=== PATIENT | male | born 1990 | race African-American/Black ===

== ENCOUNTER 2018-07-26 12:54 | Emergency (ER) | payer OTHER ==
[~2018-07-26] VITALS: Ht 185.4 cm; Wt 93.2 kg
[2018-07-26 12:55] VITALS: BP 140/81
[2018-07-26] MEDS ORDERED: NAPROXEN 250 MG TAB PO ONE (13:45)
[2018-07-26] MEDS ORDERED: PENICILLIN V POTASSIUM 500 MG TAB PO ONE (13:45)
[2018-07-26] MEDS ORDERED: PENI500T PO (14:01)
[2018-07-26] MEDS ORDERED: NAPR-837 PO (14:01)
== END 2018-07-26 14:07 | disposition home or self-care (01) ==
LOC: M ED 12:54
DX: K04.7 Periapical abscess without sinus (principal)

== ENCOUNTER 2020-03-15 13:39 | Emergency (ER) | payer BC, SELFPAY ==
[~2020-03-15] VITALS: Ht 185.4 cm; Wt 87.5 kg
[~2020-03-15 13:39] MED LIST: NAPR-837 PO; PENI500T PO
--- OUTSIDE RECORDS SUMMARY | 2020-03-15 13:54 | CCD ---
Author Author [facility] [employer] Organization [facility] [employer] Address Unknown Phone Unavailable Care Team Providers Care Failure Analysis Engineer Name Role Phone Shanique-Hakan Arin Unavailable PROBLEMS No Information ALLERGIES No Known Allergies ENCOUNTERS from 1990 to 2020-02-14 Encounter Location Date Provider Diagnosis [facility] [address] [place] [address] 13 Dec, Arin Brennategucci IMMUNIZATIONS No Information SOCIAL HISTORY Tobacco Use: Social History Observation Description Date Details (start date - stop date) Former Smoker Sex Assigned At : Social History Observation Description Sex Assigned At Unknown Alcohol Screening: Question Answer Notes Did you have a drink containing alcohol in the past year? Ye s Points 2 Interpretation Negative How often did you have six or more drinks on one occas ion in the past year? Never (0 points) How many drinks did you have on a typica l day when you were drinking in the past year? 1 or 2 (0 points) How often did you have a drink containing alcohol in t he past year? Two to four times a month (2 points) Tobacco Use: Question Answer Notes Are you a: former smoker How long has it been since you last smoked? 1-5 years REASON FOR REFERRAL No Information VITAL SIGNS No information MEDICATIONS No Information PROCEDURES No Information RESULTS No Results REASON FOR VISIT Ultrasound MEDICAL (GENERAL) HISTORY Type Description Date Surgical History No Surgical history information Goals Section No Information Health Concerns No Information MEDICAL EQUIPMENT No Information MENTAL STATUS No Information FUNCTIONAL STATUS No Information ASSESSMENTS No Information PLAN OF TREATMENT No Information Insurance Providers Payer Name Payer Address Payer Phone Insured Name Patient Relati onship to Insured Coverage Start Date Coverage End Date SELF PAY MAUREEN ONEILL self
--- OUTSIDE RECORDS SUMMARY | 2020-03-15 13:54 | CCD ---
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 Role Phone Dl Harper MD Unavailable Unavailable HeDl cortes MD Unavailable Unavailable HeDl cortes MD Unavailable Unavailable HeitDl almonte MD Unavailable Unavailable HeDl cortes MD Unavailable Unavailable HeitDl almonte MD Unavailable Unavailable HeDl cortes MD Unavailable Unavailable HeDl cortes MD Unavailable Unavailable Dl Harper MD Unavailable Unavailable HeDl cortes MD Unavailable Unavailable HeDl cortes MD Unavailable Unavailable HeDl cortes MD Unavailable Unavailable Dl Harper MD Unavailable Unavailable Dl Harper MD Unavailable Unavailable Dl Harper MD Unavailable Unavailable Dl Harper MD Unavailable Unavailable HeDl cortes MD Unavailable Unavailable Dl Harper MD Unavailable Unavailable Dl Harper MD Unavailable Unavailable Dl Harper MD Unavailable Unavailable Dl Harper MD Unavailable Unavailable Dl Harper MD Unavailable Unavailable Dl Harper MD Unavailable Unavailable Dl Harper MD Unavailable Unavailable Dl Harper MD Unavailable Unavailable Re-disclosure Warning The records that you are about to access may contain information from federally-assisted alcohol or drug abuse programs. If such information is present, then the following federally mandated warning applies: This information has been disclosed to you from records protected by federal confidentiality rules (42 CFR part 2). The federal rules prohibit you from making any further disclosure of this information unless further disclosure is expressly permitted by the written consent of the person to whom it pertains or as otherwise permitted by 42 CFR part 2. A general authorization for the release of medical or other information is NOT sufficient for this purpose. The Federal rules restrict any use of the information to criminally investigate or prosecute any alcohol or drug abuse patient.The records that you are about to access may contain highly sensitive health information, the redisclosure of which is protected by Article 27-F of the [facility] Public Health law. If you continue you may have access to information: Regarding HIV / AIDS; Provided by facilities licensed or operated by the [facility] Office of Mental Health; or Provided by the [facility] Office for People With Developmental Disabilities. If such information is present, then the following [facility] mandated warning applies: This information has been disclosed to you from confidential records which are protected by state law. State law prohibits you from making any further disclosure of this information without the specific written consent of the person to whom it pertains, or as otherwise permitted by law. Any unauthorized further disclosure in violation of state law may result in a fine or alf sentence or both. A general authorization for the release of medical or other information is NOT sufficient authorization for further disc losure. Encounters Encounter Providers Location Date Indications Data Source(s ) Unknown [address] [facility], [facility] [address] 01/12/2020 12:00:00 AM EST eCW1 ([facility]) OFFICE OUTPATIENT NEW 30 MINUTES Attender: Genaro Harper MD Phy sical Therapy 05/10/2019 10:00:00 AM EDT MEDENT ([facility]) Medications Medication Brand Name Start Date Product Form Dose Route Admi nistrative Instructions Pharmacy Instructions Status Indications Reaction Description Data Source(s) 20 mg 05/06/2019 12:00:00 AM EST tablet 10 TAKE TWO TABLETS BY MOUTH EVERY DAY FOR 5 DAYS TAKE TWO TABLETS BY MOUTH EVERY DAY FOR 5 DAYS SOLD: [facility] Insurance Providers Payer name Policy type / Coverage type Policy ID Covered libertarian ID Covered libertarian's relationship to [place] Policy [place] Plan Information SELF PAY ONLY [id number] [facility] [id number] [facility] [id number] Social History Code Duration Value Status Description Data Source(s ) Smoking 01/12/2020 12:00:00 AM EST Former Smoker completed Former Smoker eCW1 ([facility]) Vital Signs ID Date Data Source UNK Name Value Range Interpretation Code Description Data Source(s) Body mass index (BMI) [Ratio] 26.4 kg/m2 26.4 k g/m2 MEDENT ([facility] ) Body weight 200.00 [lb_av] 200.00 [lb_av] MEDEN T ([facility]) Body height 73 [in_i] 73 [in_i] MEDENT ([facility] ) 6'1" Body temperature 98.2 [degF] 98.2 [degF] MEDENT ([facility])
[2020-03-15 15:10] LABS: HEMATOCRIT 24.2 % (42.0-52.0); HEMOGLOBIN 8.8 g/dl (13.5-17.5); MEAN CORPUSCULAR HEMOGLOBIN 30.9 pg (27.0-33.0); MEAN CORPUSCULAR HGB CONC 36.4 g/dl (32.0-36.5); MEAN CORPUSCULAR VOLUME 84.9 fl (80.0-96.0); PLATELET COUNT, AUTOMATED 532 10^3/uL (150-450); RED BLOOD COUNT 2.85 10^6/uL (4.30-6.10)
--- OUTSIDE RECORDS SUMMARY | 2020-03-15 15:11 | CCD ---
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 If you continue you may have access to information: Regarding HIV / AIDS; Provided by facilities licensed or operated by the [facility] Office of Mental Health; or Provided by the [facility] Office for People With Developmental Disabilities. If such information is present, then the following [facility] mandated warning applies: This information has [...] law may result in a fine or chcf sentence or both. A general authorization for the release of medical or other information is NOT sufficient authorization for further disc losure. Encounters Encounter Providers Location Date Indications Data Source(s ) Unknown [address] [facility], [facility] [address] 01/12/2020 12:00:00 AM EST [facility] OFFICE OUTPATIENT NEW 30 MINUTES Attender: Genaro Harper MD Phy sical Therapy 05/10/2019 10:00:00 AM EDT MEDENT ([facility]) Medications Medication Brand [...] type / Coverage type Policy ID Covered democrat ID Covered democrat's relationship to [place] Policy [place] Plan Information [employer] [place] P[place] 302/307 [id number] SP [id number] [employer] [place] P[place] 302/307 [id number] SP [id number] SELF PAY ONLY [id number] SP [id number] [address] [facility] [id number] Social History Code Duration Value Status Description Data Source(s ) Smoking 01/12/2020 12:00:00 AM EST Former Smoker completed Former Smoker eCW1 ([facility]) Vital Signs ID Date Data Source UNK Name Value Range Interpretation Code Description Data Source(s) Body mass index (BMI) [Ratio] 26.4 kg/m2 26.4 k g/m2 [facility] ([facility] ) Body weight 200.00 [lb_av] 200.00 [lb_av] MEDEN T ([facility] ) Body height 73 [in_i] 73 [in_i] [facility] ([facility] ) 6'1" Body temperature 98.2 [degF] 98.2 [degF] [facility] ([facility] )
--- NOTE | 2020-03-15 15:24 | REP ---
INDICATION: night sweats, pain lateral knee, swollen lump COMPARISON: None TECHNIQUE: Five views FINDINGS: See impression IMPRESSION: The compartments are symmetric and relatively well maintained. There is no acute fracture or destructive osseous lesion. <Electronically signed by Luis Jeff > 03/15/20 1252
[2020-03-15 15:26] LABS: WHITE BLOOD COUNT 403.7 10^3/uL (4.0-10.0)
[2020-03-15 15:29] LABS: INR 1.4; PROTHROMBIN TIME 17.5 SECONDS (12.5-14.3)
--- NOTE | 2020-03-15 15:29 | REP ---
INDICATION: night sweats, left supraclavicular swelling. COMPARISON: None. FINDINGS: The superior mediastinal structures are midline. The cardiac silhouette is unremarkable in size, shape, and position. The diaphragmatic surfaces of the lungs are regular, and the costophrenic angles are clear. The pulmonary vizcarra are clear. The imaged osseous structures are intact. IMPRESSION: There is no acute cardiopulmonary disease. If lymphadenopathy is of clinical concern then contrast-enhanced CT examination is recommended. <Electronically signed by Luis Jeff > 03/15/20 3651
[2020-03-15 15:30] LABS: PARTIAL THROMBOPLASTIN TIME 42.5 SECONDS (24.2-38.5)
[2020-03-15 15:38] LABS: MONO REFLEX EBV COMP NEGATIVE (NEGATIVE)
[2020-03-15 15:40] LABS: ALBUMIN 3.5 GM/DL (3.2-5.2); ALT/SGPT 22 U/L (12-78); BILIRUBIN,DIRECT 0.2 MG/DL (0.0-0.2); BILIRUBIN,TOTAL 0.5 MG/DL (0.2-1.0); BLOOD UREA NITROGEN 12 MG/DL (7-18); C REACTIVE PROTEIN QUANTITATIV 1.63 MG/DL (0.00-0.30); CALCIUM LEVEL 8.3 MG/DL (8.5-10.1); CARBON DIOXIDE LEVEL 30 MEQ/L (21-32); CHLORIDE LEVEL 104 MEQ/L (98-107); CREATININE FOR GFR 1.32 MG/DL (0.70-1.30); FREE T4 1.01 NG/DL (0.76-1.46); GLOMERULAR FILTRATION RATE > 60.0 (>60); GLUCOSE, FASTING 86 MG/DL (70-100); LIPASE 83 U/L (73-393); POTASSIUM SERUM 3.5 MEQ/L (3.5-5.1); SODIUM LEVEL 137 MEQ/L (136-145); TOTAL PROTEIN 8.8 GM/DL (6.4-8.2)
[2020-03-15 15:42] LABS: BASOPHILS 2 % (0-1); BLAST CELLS 6 % (0-0); LYMPHOCYTES 1 % (16-44); METAMYELOCYTES 11 % (0-0); MONOCYTES 1 % (0-5); MYELOCYTES 17 % (0-0); NEUTROPHILS 42 % (28-66); PLATELET ESTIMATE INCREASED (NORMAL); PROMYELOCYTES 8 % (0-0)
[2020-03-15 15:44] LABS: ANISOCYTOSIS 1+; POLYCHROMASIA 1+
[2020-03-15 16:24] LABS: HIV 1&2 SCREEN CENTAUR NEGATIVE (NEGATIVE)
[2020-03-15 16:29] LABS: RSV AMPLIFICATION NEGATIVE (NEGATIVE)
[2020-03-15 17:35] VITALS: BP 139/74
[2020-03-18 17:07] LABS: EBV AB TO NUCLEAR ANTIGEN 39.9 U/mL (0.0-17.9); EBV VIRAL CAPSID AG IgG >600.0 U/mL (0.0-17.9)
[2020-03-19 01:07] LABS: Lyme Disease IgG Ab 18 kDa Ban Absent (.); Lyme Disease IgG Ab 23 kDa Ban Absent (.); Lyme Disease IgG Ab 28 kDa Ban Absent (.); Lyme Disease IgG Ab 30 kDa Ban Absent (.); Lyme Disease IgG Ab 39 kDa Ban Absent (.); Lyme Disease IgG Ab 41 kDa Ban Present (.); Lyme Disease IgG Ab 45 kDa Ban Absent (.); Lyme Disease IgG Ab 58 kDa Ban Absent (.); Lyme Disease IgG Ab 66 kDa Ban Absent (.); Lyme Disease IgG Ab 93 kDa Ban Absent (.); Lyme Disease IgG West Blot Int Negative (.); Lyme Disease IgG/IgM Antibodie <0.91 ISR (0.00-0.90); Lyme Disease IgM Ab 23 kDa Ban Absent (.); Lyme Disease IgM Ab 39 kDa Ban Present (.); Lyme Disease IgM Ab 41 kDa Ban Absent (.); Lyme Disease IgM Ab Quantitati 1.78 index (0.00-0.79); Lyme Disease IgM West Blot Int Negative (.)
== END 2020-03-15 17:38 | disposition short-term general hospital (02) ==
LOC: M ED 13:39
DX: C95.90 Leukemia, unspecified not having achieved remission (principal); Z88.8 Allergy status to other drugs, medicaments and biological substances

== ENCOUNTER → 2020-07-18 | Outpatient (CLI) | payer BC ==
[~2020-07-18] MED LIST changes: +GASTROGRAFIN SOLUTION 30ML (Q9963) As Ordered ONE; +ISOVUE-370 76% 100ML VIAL As Ordered ONE
--- NOTE | 2020-07-18 15:09 | REP ---
INDICATION: LLQ ABD PAIN, history CML. COMPARISON: None. TECHNIQUE: CT Scan of the abdomen and pelvis was performed with intravenous administration of 100 cc of Isovue 370, and oral contrast. FINDINGS: Lung bases: Unremarkable. Liver: There is mild enlargement of the liver measuring 18 cm in length. Gallbladder: Unremarkable. Spleen: There is mild enlargement of the spleen measuring 14.5 cm in length. Adrenals: Normal. Pancreas: Normal. Kidneys: Normal. Small and large bowel: Unremarkable. No bowel wall thickening. No free air or bowel obstruction. Free fluid: There is very mild free fluid in the pelvis. Abdominal aorta: No aneurysm or dissection. Adenopathy: Multiple enlarged lymph nodes are present in the retrocrural regions, gastrohepatic ligament, portal region, peripancreatic region and central mesentery, periaortic and pericaval regions. Appendix: Not inflamed. Osseous structures: Unremarkable. Pelvis: No mass. IMPRESSION: Mild hepatosplenomegaly. Extensive adenopathy in the abdomen as discussed in detail above. Very mild free fluid in the pelvis. No other acute abnormality. <Electronically signed by Brendon Christianson > 07/18/20 [id number]
== END ==
LOC: M RAD 12:36
PROVIDERS: ATTEND Family Medicine
DX: R10.32 Left lower quadrant pain (principal)

== ENCOUNTER → 2020-07-22 | Outpatient (REF) | payer BC ==
[~2020-07-22] MED LIST changes: -GASTROGRAFIN SOLUTION 30ML (Q9963) As Ordered ONE; -ISOVUE-370 76% 100ML VIAL As Ordered ONE
== END ==
LOC: M SFHCADAM 10:39
PROVIDERS: ATTEND Family Medicine
DX: R10.32 Left lower quadrant pain (principal)

== ENCOUNTER 2020-07-25 01:28 | Emergency (ER) | payer BC ==
[~2020-07-25] VITALS: Ht 185.4 cm; Wt 89.7 kg
[2020-07-25 01:30] VITALS: BP 132/78
[2020-07-25] MEDS ORDERED: IMAT400T (01:37)
== END 2020-07-25 04:20 | disposition left against medical advice (07) ==
LOC: M ED 01:28
DX: R22.0 Localized swelling, mass and lump, head (principal); C92.10 Chronic myeloid leukemia, BCR/ABL-positive, not having achieved remission; Z79.899 Other long term (current) drug therapy; Z88.8 Allergy status to other drugs, medicaments and biological substances

== ENCOUNTER 2020-08-17 14:04 | Emergency (ER) | payer BC ==
[~2020-08-17] VITALS: Ht 185.4 cm; Wt 88.2 kg
[~2020-08-17 14:04] MED LIST changes: +IMAT400T
[2020-08-17] MEDS ORDERED: NS 1,000 ML IV ONE (14:50)
[2020-08-17 15:42] LABS: LYMPH # 0.5 10^3/uL (1.5-5.0); LYMPH % 67.2 % (24.0-44.0); MEAN CORPUSCULAR HEMOGLOBIN 25.2 pg (27.0-33.0); MEAN CORPUSCULAR HGB CONC 32.6 g/dl (32.0-36.5); MEAN CORPUSCULAR VOLUME 77.2 fl (80.0-96.0); MONO # 0.1 10^3/uL (0.0-0.8); MONO % 10.4 % (2.0-8.0); NEUTROPHILS % 19.4 % (36.0-66.0); RED BLOOD COUNT 1.23 10^6/uL (4.30-6.10)
[2020-08-17 15:43] LABS: HEMOGLOBIN 3.1 g/dl (13.5-17.5); WHITE BLOOD COUNT 0.7 10^3/uL (4.0-10.0)
[2020-08-17 15:44] LABS: HEMATOCRIT 9.5 % (42.0-52.0); NEUTROPHILS # 0.1 10^3/uL (1.5-8.5)
[2020-08-17 15:45] LABS: PLATELET COUNT, AUTOMATED 5 10^3/uL (150-450)
[2020-08-17 15:47] LABS: ALBUMIN 3.2 GM/DL (3.2-5.2); BILIRUBIN,DIRECT 0.2 MG/DL (0.0-0.2); BILIRUBIN,TOTAL 0.7 MG/DL (0.2-1.0); TOTAL PROTEIN 8.1 GM/DL (6.4-8.2)
[2020-08-17 15:55] LABS: BLOOD UREA NITROGEN 11 MG/DL (7-18); CALCIUM LEVEL 8.1 MG/DL (8.5-10.1); CARBON DIOXIDE LEVEL 27 MEQ/L (21-32); CHLORIDE LEVEL 103 MEQ/L (98-107); CK-MB VALUE MASS < 1.0 NG/ML (<3.6); CPK CREATINE PHOSPHOKINASE 85 U/L (39-308); CREATININE FOR GFR 1.28 MG/DL (0.70-1.30); ETHYL ALCOHOL (ETHANOL) < 0.003 % (0.000-0.010); FREE T4 0.87 NG/DL (0.76-1.46); GLOMERULAR FILTRATION RATE > 60.0 (>60); GLUCOSE, FASTING 135 MG/DL (70-100); MAGNESIUM LEVEL 2.1 MG/DL (1.8-2.4); MB/CK RELATIVE INDEX 1.18 (< OR =4); POTASSIUM SERUM 3.7 MEQ/L (3.5-5.1); SODIUM LEVEL 134 MEQ/L (136-145); THYROID STIMULATING HORMONE 0.298 uIU/ML (0.358-3.740); TROPONIN I < 0.02 NG/ML (< 0.10)
--- NOTE | 2020-08-17 16:38 | REP ---
INDICATION: fall, low platelets. COMPARISON: None. TECHNIQUE: 4.5 mm contiguous transaxial sections were obtained from the skull base to the cerebral convexities with thin cuts through the posterior fossa without the administration of intravenous contrast. FINDINGS: The ventricles and sulci are consistent with the patient's age. There are no extra-axial fluid collections. There is no mass effect. The deep cerebral white matter is consistent with the patient's age. The orbital and petrous structures, cerebellopontine angles, and posterior fossa are unremarkable. The sella turcica, cavernous, and paracavernous structures are essentially unremarkable. The visualized portions of the paranasal sinuses and mastoid air cells are clear. Images of the skull base show no gross abnormality. IMPRESSION: Essentially unremarkable CT examination of the brain. <Electronically signed by Luis Jeff > 08/17/20 0942
[2020-08-17 16:56] VITALS: BP 123/60
[2020-08-17 17:15] VITALS: BP 129/59
[2020-08-17 18:38] VITALS: BP 111/54
--- NOTE | 2020-08-18 14:23 | ECGEPIP ---
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
== END 2020-08-17 18:39 | disposition short-term general hospital (02) ==
LOC: M ED 14:04
DX: D61.818 Other pancytopenia (principal); Z79.899 Other long term (current) drug therapy; Z88.8 Allergy status to other drugs, medicaments and biological substances; Z87.891 Personal history of nicotine dependence
CPT/HCPCS: 36430; 70450; 80048; 80076; 82077; 82550; 82553; 83735; 84439; 84443; 84484; 85025; 85049; 85055; 86850; 86900; 86901; 86920; 93005; 93041; 94760; 99285; P9016